=== PATIENT | male | born 1995 | race African-American/Black ===

== ENCOUNTER 2020-05-07 18:35 | Inpatient (IN) | payer SELFPAY ==
[~2020-05-07] VITALS: Ht 182.9 cm; Wt 77.1 kg
[2020-05-07] MEDS ORDERED: DICYCLOMINE 10 MG/5 ML ORAL SYR PO STA (19:00)
[2020-05-07] MEDS ORDERED: SODIUM CHLORIDE 0.9% 1,000 ML IV ONE (19:00)
[2020-05-07] MEDS ORDERED: MAGNESIUM/ALUMINUM HYDROXIDE/SIMETHICONE 30ML UDC PO STA (19:00)
[2020-05-07] MEDS ORDERED: VISCOUS LIDOCAINE 2% 15 ML UDC PO STA (19:00)
[2020-05-07] MEDS ORDERED: ONDANSETRON HCL 4MG/2ML INJ IV STA (19:00)
[2020-05-07 20:19] LABS: BASOPHILS % 0.4 % (0.0-2.0); EOSINOPHILS % 0.1 % (0.0-5.0); HEMATOCRIT. 44.8 % (42.0-52.0); HEMOGLOBIN. 15.7 g/dL (14.0-18.0); LYMPHOCYTES % 16.7 % (20.0-50.0); MEAN CORPUSCULAR HEMOGLOBIN 28.8 pg (28.0-32.0); MEAN CORPUSCULAR VOLUME 82.3 fL (80.0-94.0); MEAN PLATELET VOLUME 7.7 fl (7.4-10.4); MONOCYTES % 5.1 % (2.0-8.0); NEUTROPHILS % 77.7 % (40.0-76.0); PLATELET 361 x1000/uL (130-400); RED BLOOD CELL COUNT 5.45 mill/uL (4.7-6.1); RED CELL DISTRIBUTION WIDTH 13.3 % (11.6-14.6)
[2020-05-07 20:23] LABS: CHLORIDE 96 mEq/L (98-107)
[2020-05-07] MEDS ORDERED: POTASSIUM CHLORIDE INJ 40 MEQ in DEXT 5% WATER 500 ML IV ONE (20:45)
[2020-05-07] MEDS ORDERED: POTASSIUM CHLORIDE 20MEQ TABLET SR PO ONE (20:45)
[2020-05-07] MEDS ORDERED: DOCUSATE SODIUM 100MG CAPSULE PO PRN (22:15)
[2020-05-07] MEDS ORDERED: KETOROLAC 15MG/ML VIAL IV PRN (22:15)
[2020-05-07] MEDS ORDERED: NITROGLYCERIN 0.4MG TABLET SL SL PRN (22:15)
[2020-05-07] MEDS ORDERED: ACETAMINOPHEN 325MG TABLET PO PRN ×2 (22:15)
[2020-05-07] MEDS ORDERED: MAGNESIUM/ALUMINUM HYDROXIDE/SIMETHICONE 30ML UDC PO PRN (22:15)
[2020-05-07] MEDS ORDERED: GUAIFENESIN 200MG/10ML SUGAR FREE UDC PO PRN (22:15)
[2020-05-07] MEDS ORDERED: CLONIDINE 0.1MG TABLET PO PRN (22:15)
[2020-05-07] MEDS ORDERED: ONDANSETRON HCL 4MG/2ML INJ IV PRN (22:15)
[2020-05-07] MEDS ORDERED: ZOLPIDEM TARTRATE 5MG TABLET PO PRN (22:15)
[2020-05-07] MEDS ORDERED: IPRATROPIUM/ALBUTEROL 0.5-3(2.5)MG/3ML NEB NEB PRN (22:15)
[2020-05-08] MEDS ORDERED: POTASSIUM CHLORIDE 20MEQ TABLET SR PO SCH (02:00)
[2020-05-08 03:06] VITALS: BP 128/85
[2020-05-08 04:00] VITALS: BP 128/85
[2020-05-08 07:51] LABS: BASOPHILS % 0.5 % (0.0-2.0); EOSINOPHILS % 0.3 % (0.0-5.0); HEMATOCRIT. 41.1 % (42.0-52.0); HEMOGLOBIN. 14.1 g/dL (14.0-18.0); MEAN CORPUSCULAR HEMOGLOBIN 28.6 pg (28.0-32.0); MEAN CORPUSCULAR VOLUME 83.2 fL (80.0-94.0); MEAN PLATELET VOLUME 7.1 fl (7.4-10.4); MONOCYTES % 9.3 % (2.0-8.0); NEUTROPHILS % 55.9 % (40.0-76.0); PLATELET 318 x1000/uL (130-400); RED BLOOD CELL COUNT 4.94 mill/uL (4.7-6.1); RED CELL DISTRIBUTION WIDTH 13.2 % (11.6-14.6)
[2020-05-08 07:56] LABS: CHLORIDE 103 mEq/L (98-107)
[2020-05-08 08:00] VITALS: BP 110/54
[2020-05-08 08:01] LABS: PHOSPHORUS 2.9 mg/dL (2.5-4.9)
[2020-05-08] MEDS ORDERED: ASCORBIC ACID 500 MG TABLET PO SCH (09:00)
[2020-05-08] MEDS ORDERED: FAMOTIDINE 20MG TABLET PO SCH (09:00)
[2020-05-08] MEDS ORDERED: ZINC SULFATE 220 MG ( 50 ) CAPSULE PO SCH (09:00)
[2020-05-08] MEDS ORDERED: POTASSIUM CHLORIDE 20MEQ/PACKET PO ONE (11:00)
[2020-05-08 13:32] VITALS: BP 126/77
== END 2020-05-08 14:35 | disposition home or self-care (01) | DRG 422 ==
LOC: ER 18:35 → 6EST 21:58 → EDBEDREQ 22:00 → ENRESERV 22:29
PROVIDERS: ADMIT Internal Medicine; ATTEND Internal Medicine
DX: E86.0 Dehydration (principal); E87.6 Hypokalemia
CPT/HCPCS: 36415; 71045; 80053; 83615; 83735; 84100; 84145; 85025; 85379; 93005; 99285; J2405; J3480; J7030; J7060